=== PATIENT | female | born 1935 | race Caucasian/White ===

== ENCOUNTER 2018-03-26 21:01 | Inpatient (IN) | payer OTHER, SELFPAY ==
[~2018-03-26] VITALS: Ht 154.9 cm; Wt 56.0 kg
[~2018-03-26 21:01] MED LIST: AMLO5 PO; Anastrozole1 GM; CLOP75; CLOP75 PO; DICL25ER PO; HYDR1TAB94; LISI5 PO; NAPR375; Norco 5-325 Ta1 EACH PO; PANT40 PO; RALO60 PO; TRAM50 PO; ZOLP5
[2018-03-26 22:31] LABS: BASOPHILS ABSOLUTE AUTO 0.09 K/mm3 (0.00-0.23); BASOPHILS PERCENT AUTO 1 % (0-2); EOSINOPHILS PERCENT AUTO 1 % (0-6); Hematocrit 42.6 % (33.0-51.0); Hemoglobin 13.8 g/dL (11.5-16.0); IMMATURE GRAN ABSOLUTE AUTO 0.04 K/mm3 (0.00-0.10); IMMATURE GRAN PERCENT AUTO 1 % (0-1); LYMPHOCYTES ABSOLUTE AUTO 2.09 K/mm3 (0.84-5.20); LYMPHOCYTES PERCENT AUTO 26 % (21-46); MONOCYTES ABSOLUTE AUTO 0.85 K/mm3 (0.16-1.47); MONOCYTES PERCENT AUTO 10 % (4-13); Mean Corpuscular HGB 30.7 pg (26.0-34.0); Mean Corpuscular HGB Conc 32.4 g/dL (31.5-36.5); Mean Corpuscular Volume 95 fL (80-100); Mean Platelet Volume 10.5 fL (9.1-12.4); NEUTROPHILS ABSOLUTE AUTO 4.98 K/mm3 (1.96-9.15); NEUTROPHILS PERCENT AUTO 61 % (41-73); Platelet Count 189 K/mm3 (150-400); RDW Coefficient Variation 15.2 % (11.7-14.2); RDW Standard Deviation 53.7 fL (35.1-46.3); White Blood Cell Count 8.15 K/mm3 (4.00-11.30)
[2018-03-26 22:46] LABS: International Normalized Ratio 0.98; Prothrombin Time Results 10.1 Sec (9.7-11.5)
[2018-03-26 22:50] LABS: Albumin, Blood 3.6 g/dL (3.4-5.0); Albumin/Globulin Ratio 1.1 (0.8-1.8); Bilirubin, Total 0.6 mg/dL (0.1-1.0); Bun/Creatinine Ratio 15.3 (12.0-20.0); Calcium, Blood 9.1 mg/dL (8.5-10.1); Creatinine, Blood 1.18 mg/dL (0.40-1.00); Globulin, Blood 3.4 g/dL (2.2-4.0); Potassium, Blood 3.7 mmol/L (3.5-5.5)
[2018-03-27 00:25] LABS: Source, Urine Clean Catch
[2018-03-27 00:28] LABS: Blood, Urine 1+ (Neg); Glucose Qualitative, Urine Neg (Neg); Ketones, Urine Neg (Neg); Leukocyte Esterase, Urine 3+ (Neg); Nitrite, Urine Neg (Neg); Protein, Urine 2+ (Neg); Specific Gravity, Urine 1.025 (1.003-1.022); Urobilinogen, Urine 1+ (Normal)
[2018-03-27 00:33] LABS: Appearance, Urine Hazy (Clear); Bilirubin, Urine 1+ (Neg); Color, Urine Amber (P-Yellow)
[2018-03-27 00:35] LABS: Amorphous Light ([, 0-Heavy]); Bacteria Mod /hpf; Red Blood Cells, Urine 0-2 /hpf (0-2); Squamous Epithelial Cells Few /hpf (Few); White Blood Cells, Urine TNTC /hpf (0-5)
[2018-03-27] MEDS ORDERED: Metoprolol Succ25 MG PO (00:42)
[2018-03-27] MEDS ORDERED: CENTRUM COMPLE1 EACH PO (00:42)
[2018-03-27] MEDS ORDERED: CLOP75 PO (00:42)
[2018-03-27] MEDS ORDERED: DEXA4 PO (00:45)
[2018-03-27] MEDS ORDERED: GABA100 PO (02:28)
[2018-03-27 05:16] LABS: Hemoglobin 13.7 g/dL (11.5-16.0); Mean Corpuscular HGB 30.2 pg (26.0-34.0); Mean Corpuscular HGB Conc 32.6 g/dL (31.5-36.5); Mean Corpuscular Volume 93 fL (80-100); Mean Platelet Volume 10.4 fL (9.1-12.4); Platelet Count 179 K/mm3 (150-400); RDW Coefficient Variation 15.2 % (11.7-14.2); RDW Standard Deviation 51.8 fL (35.1-46.3); Red Blood Cell Count 4.53 M/mm3 (3.80-5.20); White Blood Cell Count 9.82 K/mm3 (4.00-11.30)
[2018-03-27 05:42] LABS: Albumin, Blood 3.4 g/dL (3.4-5.0); Albumin/Globulin Ratio 1.1 (0.8-1.8); Bilirubin, Total 0.5 mg/dL (0.1-1.0); Bun/Creatinine Ratio 17.3 (12.0-20.0); Calcium, Blood 8.9 mg/dL (8.5-10.1); Creatinine, Blood 0.98 mg/dL (0.40-1.00); Globulin, Blood 3.2 g/dL (2.2-4.0); Potassium, Blood 3.5 mmol/L (3.5-5.5); Total Protein, Blood 6.6 g/dL (6.4-8.2)
[2018-03-28 04:36] LABS: CHOL/HDL RATIO 2.3; Cholesterol 153 mg/dL (50-200); HDL Cholesterol 67 mg/dL (>39); LDL/HDL RATIO 1.1; Low Density Lipoprotein Chol 74 mg/dL (0-110); Triglycerides 60 mg/dL (30-160); Very Low Density Lipoprot Chol 12 mg/dL (6-32)
[2018-03-28] MEDS ORDERED: LEVO750 PO (14:04)
== END 2018-03-28 14:40 | disposition home health service (06) | DRG 871 ==
LOC: ER 21:01 → MEDS 21:02
PROVIDERS: Emergency Medicine; Family Medicine; Internal Medicine
DX: A41.9 Sepsis, unspecified organism (principal); J18.9 Pneumonia, unspecified organism; G92 Toxic encephalopathy; N39.0 Urinary tract infection, site not specified; C79.9 Secondary malignant neoplasm of unspecified site; R64 Cachexia; E86.0 Dehydration; K21.9 Gastro-esophageal reflux disease without esophagitis; M81.0 Age-related osteoporosis without current pathological fracture; I12.9 Hypertensive chronic kidney disease with stage 1 through stage 4 chronic kidney disease, or unspecified chronic kidney disease; N18.3 Chronic kidney disease, stage 3 (moderate); C50.919 Malignant neoplasm of unspecified site of unspecified female breast; R00.1 Bradycardia, unspecified; R26.81 Unsteadiness on feet; R93.1 Abnormal findings on diagnostic imaging of heart and coronary circulation; G56.01 Carpal tunnel syndrome, right upper limb; M62.81 Muscle weakness (generalized); G62.9 Polyneuropathy, unspecified; M19.011 Primary osteoarthritis, right shoulder; Z66 Do not resuscitate; Z86.73 Personal history of transient ischemic attack (TIA), and cerebral infarction without residual deficits; Z79.811 Long term (current) use of aromatase inhibitors; Z79.02 Long term (current) use of antithrombotics/antiplatelets; Z79.891 Long term (current) use of opiate analgesic; Z79.899 Other long term (current) drug therapy; Z95.0 Presence of cardiac pacemaker; Z79.52 Long term (current) use of systemic steroids
CPT/HCPCS: 36415; 70450; 71045; 80053; 80061; 81001; 83605; 83735; 85025; 85027; 85610; 85730; 87077; 87086; 87186; 92610; 93005; 93010; 93306; 93880; 96361; 96365; 96372; 96374; 96375; 97162; 97166; 97530; 99285; G0378; G8978; G8979; G8987; G8988; G8996; G8997; G8998; J0696; J1642; J1650; J7030

== ENCOUNTER 2018-04-13 10:25 | Emergency (ER) | payer OTHER ==
[~2018-04-13] VITALS: Ht 162.6 cm; Wt 61.2 kg
[~2018-04-13 10:25] MED LIST changes: +CENTRUM COMPLE1 EACH PO; +DEXA4 PO; +GABA100 PO; +LEVO750 PO; +Metoprolol Succ25 MG PO
[2018-04-13] MEDS ORDERED: HYDMOR2 PO (15:14)
[2018-04-13] MEDS ORDERED: OXYC10TA19 PO (15:14)
[2018-04-13] MEDS ORDERED: CENTRUM SILVER1 EAC2 PO (15:15)
== END 2018-04-13 14:02 | disposition home or self-care (01) ==
LOC: ER 10:25
DX: S09.90XA Unspecified injury of head, initial encounter (principal); S12.100A Unspecified displaced fracture of second cervical vertebra, initial encounter for closed fracture; M25.511 Pain in right shoulder; I10 Essential (primary) hypertension; Z86.73 Personal history of transient ischemic attack (TIA), and cerebral infarction without residual deficits; Z79.899 Other long term (current) drug therapy; Z79.01 Long term (current) use of anticoagulants; W20.8XXA Other cause of strike by thrown, projected or falling object, initial encounter
CPT/HCPCS: 70450; 72125; 73060; 96374; 96375; 99284; J2405; J3010